=== PATIENT | male | born 1935 | race Caucasian/White ===

== ENCOUNTER 2017-05-26 00:04 | Observation (INO) | payer MEDICARE ==
[2017-05-26] VITALS (7 sets, daily range): BP systolic 99–129; BP diastolic 52–77
[~2017-05-26] VITALS: Ht 170.2 cm; Wt 87.1 kg
[2017-05-26] MEDS ORDERED: ALBUTEROL SULFATE 0.083% 2.5 MG/3 ML INH IH ONE (00:47)
[2017-05-26] MEDS ORDERED: ASPIRIN 325 MG TABLET ONE (00:54)
[2017-05-26] MEDS ORDERED: FAMOTIDINE/PF 20 MG/2 ML VIAL IV ONE (00:54)
[2017-05-26] MEDS ORDERED: NITROGLYCERIN 0.4 MG SL TAB SL ONE (00:54)
[2017-05-26 01:01] LABS: BASOPHILS % (AUTO) 0.7 % (0.0-5.0); EOSINOPHILS % (AUTO) 6.5 % (0.0-8.0); HEMATOCRIT 38.4 % (42-54); LYMPHOCYTES % (AUTO) 34.7 % (21.0-51.0); MEAN CORPUSCULAR HEMOGLOBIN 30.3 pg (27.0-33.0); MEAN CORPUSCULAR HGB CONC 33.5 g/dL (32.0-36.0); MEAN CORPUSCULAR VOLUME 90.6 fL (79-99); MONOCYTES % (AUTO) 11.5 % (3.0-13.0); NEUTROPHILS % (AUTO) 46.6 % (40.0-77.0); PLATELET COUNT (AUTO) 230 K/uL (130-400); RED BLOOD CELL COUNT(AUTO) 4.24 MIL/uL (4.50-6.20); RED CELL DISTRIBUTION WIDTH 12.8 % (11.0-15.5); WHITE BLOOD COUNT (AUTO) 11.7 K/uL (4.8-10.8)
[2017-05-26 01:08] LABS: CREATININE 1.2 mg/dL (0.5-1.5)
[2017-05-26 01:09] LABS: PARTIAL THROMBOPLASTIN TIME 25.5 SEC (26.3-35.5); PROTHROMBIN TIME 10.5 SEC (9.6-11.6)
[2017-05-26 01:18] LABS: B-TYPE NATRIURETIC PEPTIDE 59 pg/mL (0-100)
[2017-05-26 01:22] LABS: ALBUMIN 3.4 g/dL (3.5-5.0); BILIRUBIN,TOTAL 0.3 mg/dL (0.2-1.0); CREATINE KINASE MB 2.1 ng/mL (0.5-3.6); TOTAL PROTEIN, SERUM 6.6 g/dL (6.0-8.3)
[2017-05-26] MEDS ORDERED: SODIUM CHLORIDE 0.9% 10 ML VIAL IVP PRN (03:30)
[2017-05-26] MEDS ORDERED: SIMV40TA5 PO (04:31)
[2017-05-26] MEDS ORDERED: AMIO200T2 PO (04:31)
[2017-05-26] MEDS ORDERED: PREG150C PO (04:31)
[2017-05-26] MEDS ORDERED: LATA2.5D2 OU (04:31)
[2017-05-26] MEDS ORDERED: LISI10TA7 PO (04:31)
[2017-05-26] MEDS ORDERED: ROPI1TAB11 PO (04:31)
[2017-05-26] MEDS ORDERED: LEVO75TA10 PO (04:31)
[2017-05-26] MEDS ORDERED: OMEP40CA37 PO (04:31)
[2017-05-26] MEDS ORDERED: MULT-1296 PO (04:41)
[2017-05-26] MEDS ORDERED: WHEA1POW2 PO (04:41)
[2017-05-26] MEDS ORDERED: ACET-2900 PO (04:41)
[2017-05-26] MEDS ORDERED: NAPR220T57 PO (04:41)
[2017-05-26] MEDS ORDERED: CETI-101 PO (04:41)
[2017-05-26] MEDS: NITROGLYCERIN 1GM/1 INCH PACKET TD SCH ×4 (06:00→22:00)
[2017-05-26] MEDS: SODIUM CHLORIDE 0.9% 10 ML VIAL IVP SCH ×3 (06:15→23:00)
[2017-05-26 07:27] LABS: CREATINE KINASE MB 1.7 ng/mL (0.5-3.6); CREATINE KINASE, TOTAL 128 U/L (21-232); MYOGLOBIN 62 ng/mL (10-92); TROPONIN I < 0.04 ng/mL (0.00-0.06)
[2017-05-26] MEDS: METOPROLOL TARTRATE 50 MG TAB PO SCH ×2 (08:51→21:00)
[2017-05-26] MEDS: ENOXAPARIN SODIUM 30 MG/0.3 ML SQ SCH (08:52)
[2017-05-26] MEDS ORDERED: PANTOPRAZOLE SODIUM 40 MG TABLET.DR PO SCH (09:00)
[2017-05-26] MEDS ORDERED: ACETAMINOPHEN 325 MG TAB ONE (10:53)
[2017-05-26 12:58] LABS: CREATINE KINASE MB 1.3 ng/mL (0.5-3.6); CREATINE KINASE, TOTAL 119 U/L (21-232); MYOGLOBIN 57 ng/mL (10-92); TROPONIN I < 0.04 ng/mL (0.00-0.06)
[2017-05-26] MEDS ORDERED: BENZONATATE 100 MG CAPSULE PO PRN (16:00)
[2017-05-26] MEDS ORDERED: NAPROXEN SODIUM 220 MG PO PRN (16:00)
[2017-05-26] MEDS ORDERED: ZOLPIDEM TARTRATE 5 MG TAB PO PRN (16:00)
[2017-05-26] MEDS ORDERED: ACETAMINOPHEN EXTENDED RELEASE 650 MG TABLET PO PRN (16:00)
[2017-05-26] MEDS ORDERED: CETIRIZINE HCL 5 MG TABLET PO PRN (16:00)
[2017-05-26] MEDS ORDERED: GABA-531 PO (18:46)
[2017-05-26] MEDS: PREGABALIN 75 MG CAPSULE PO SCH (20:11)
[2017-05-26] MEDS: GABAPENTIN 300 MG CAPSULE PO SCH (20:12)
[2017-05-26] MEDS: ROPINIROLE HCL 1 MG TABLET PO SCH (20:12)
[2017-05-26] MEDS: ATORVASTATIN CALCIUM 20 MG TABLET PO SCH (20:13)
[2017-05-26] MEDS: LATANOPROST 2.5 ML DROPS OU SCH (20:13)
[2017-05-27] VITALS (7 sets, daily range): BP systolic 98–115; BP diastolic 49–66
[2017-05-27] MEDS: SODIUM CHLORIDE 0.9% 10 ML VIAL IVP SCH ×3 (05:11→22:57)
[2017-05-27] MEDS: NITROGLYCERIN 1GM/1 INCH PACKET TD SCH ×2 (05:51→14:00)
[2017-05-27] MEDS: LEVOTHYROXINE 75 MCG TABLET PO SCH (07:29)
[2017-05-27] MEDS: AMIODARONE HCL 200 MG TABLET PO SCH (09:00)
[2017-05-27] MEDS: WHEAT DEXTRIN PO SCH (09:00)
[2017-05-27] MEDS: ENOXAPARIN SODIUM 30 MG/0.3 ML SQ SCH (09:00)
[2017-05-27] MEDS: METOPROLOL TARTRATE 50 MG TAB PO SCH (09:00)
[2017-05-27] MEDS: LISINOPRIL 10 MG TABLET PO SCH (09:00)
[2017-05-27] MEDS ORDERED: ACETAMINOPHEN 325 MG TAB ONE ×2 (09:11→15:33)
[2017-05-27] MEDS ORDERED: REGADENOSON 0.4 MG/5 ML PF SYG IVP SCH (11:30)
[2017-05-27] MEDS: PANTOPRAZOLE SODIUM 40 MG TABLET.DR PO SCH (14:52)
[2017-05-27] MEDS: PREGABALIN 75 MG CAPSULE PO SCH ×2 (14:52→20:36)
[2017-05-27] MEDS: MULTIVITAMIN TABLET PO SCH (14:52)
[2017-05-27] MEDS: ROPINIROLE HCL 1 MG TABLET PO SCH (20:36)
[2017-05-27] MEDS: ATORVASTATIN CALCIUM 20 MG TABLET PO SCH (20:37)
[2017-05-27] MEDS: GABAPENTIN 300 MG CAPSULE PO SCH (20:37)
[2017-05-27] MEDS: LATANOPROST 2.5 ML DROPS OU SCH (20:39)
[2017-05-28 03:49] VITALS: BP 110/61
[2017-05-28] MEDS: LEVOTHYROXINE 75 MCG TABLET PO SCH (06:47)
[2017-05-28 07:34] VITALS: BP 129/61
[2017-05-28] MEDS: MULTIVITAMIN TABLET PO SCH (08:01)
[2017-05-28] MEDS: LISINOPRIL 10 MG TABLET PO SCH (08:01)
[2017-05-28] MEDS: PANTOPRAZOLE SODIUM 40 MG TABLET.DR PO SCH (08:01)
[2017-05-28] MEDS: AMIODARONE HCL 200 MG TABLET PO SCH (08:01)
[2017-05-28] MEDS: PREGABALIN 75 MG CAPSULE PO SCH ×2 (08:01→11:09)
[2017-05-28] MEDS: ENOXAPARIN SODIUM 30 MG/0.3 ML SQ SCH (08:02)
[2017-05-28] MEDS: WHEAT DEXTRIN PO SCH (08:04)
[2017-05-28] MEDS: SODIUM CHLORIDE 0.9% 10 ML VIAL IVP SCH (08:04)
[2017-05-28] MEDS ORDERED: METO25TA6 PO (08:56)
[2017-05-28] MEDS ORDERED: APIX5TAB PO (08:56)
[2017-05-28] MEDS ORDERED: APIXABAN 5 MG TABLET PO SCH (09:00)
[2017-05-28] MEDS ORDERED: METOPROLOL TARTRATE 50 MG TAB PO SCH (09:00)
[2017-05-28 11:07] VITALS: BP 117/59
== END 2017-05-28 13:29 | disposition home or self-care (01) ==
LOC: EDH 00:04 → 2AH 02:10
PROVIDERS: ADMIT Family Medicine; ATTEND Family Medicine
DX: R07.89 Other chest pain (principal); I48.92 Unspecified atrial flutter; G89.29 Other chronic pain; M54.9 Dorsalgia, unspecified; G25.81 Restless legs syndrome; I25.10 Atherosclerotic heart disease of native coronary artery without angina pectoris; I10 Essential (primary) hypertension; E78.5 Hyperlipidemia, unspecified; E03.9 Hypothyroidism, unspecified; Z95.1 Presence of aortocoronary bypass graft; Z90.49 Acquired absence of other specified parts of digestive tract
CPT/HCPCS: 36415; 71045; 78452; 80053; 82550 ×3; 82553 ×3; 83874 ×2; 83880; 84484 ×3; 85025; 85610; 85730; 87804 ×2; 93005 ×3; 93017; 93306; 94640; 96372 ×3; 99285; A9500 ×2; G0378 ×59; J1650 ×3; J2785; J3490; 96374